=== PATIENT | female | born 1990 | race Caucasian/White ===

== ENCOUNTER 2017-04-29 10:57 | Emergency (ER) | payer MEDICAID, SELFPAY ==
[2017-04-29] MEDS ORDERED: Ondansetron HCl/PF 4 MG/2 ML Vial ONE (11:23)
[2017-04-29] MEDS ORDERED: Sodium Chloride 0.9% 1,000 ML ONE (11:23)
[2017-04-29] MEDS ORDERED: Famotidine/PF 20 mg/2ml Vial ONE (11:24)
[2017-04-29] MEDS ORDERED: Mag-Al Plus 1200 MG/1200 MG/120 MG/30 ML UDCUP ONE (11:26)
[2017-04-29] MEDS ORDERED: Lidocaine Viscous Sol 2% 15 ml UD Cup ONE (11:26)
[2017-04-29 11:49] LABS: ALT (SGPT) 20 U/L (8-55); AST (SGOT) 37 U/L (5-34); Albumin 4.2 g/dL (3.5-5.0); Alkaline Phosphatase 61 U/L (40-150); Anion Gap 16 mmol/L (10-20); BUN (Urea Nitrogen) 14 mg/dL (7.0-18.7); Bilirubin, Total 0.6 mg/dL (0.2-1.2); Calc. Creatinine Clearance 0 mL/min (70-130); Calcium 9.5 mg/dL (7.8-10.44); Carbon Dioxide 21 mmol/L (22-29); Chloride 107 mmol/L (98-107); Estimated GFR-MDRD Greater than 90; Globulin 2.5 g/dL (2.4-3.5); Glucose 97 mg/dL (70-105); Lipase 22 U/L (8-78); Potassium 3.6 mmol/L (3.5-5.1); Protein, Total 6.7 g/dL (6.0-8.3); Sodium 140 mmol/L (136-145)
[2017-04-29 11:50] LABS: #Basophils 0.1 thou/uL (0.0-0.2); #Eosinphils 1.2 thou/uL (0.0-0.7); #Lymphocytes 1.8 thou/uL (1.20-3.40); #Monocytes 0.8 thou/uL (0.11-0.59); #Neutrophils 2.8 thou/uL (1.40-6.50); %Basophils 1.8 % (0.0-1.0); %Eosinophils 17.9 % (0.0-10.0); %Monocytes 11.9 % (0.0-10.0); %Neutrophils 41.3 % (42.0-75.0); Hemoglobin 13.4 g/dL (12.0-16.0); Mean Corpuscular HGB CONC 32.2 g/dL (32.0-36.0); Mean Corpuscular Hemoglobin 26.7 pg (27.0-31.0); Mean Corpuscular Volume 82.9 fl (81.0-99.0); Mean Platelet Volume 9.5 fL (7.4-10.4); Platelet Count 153 thou/uL (130-400); RBC Distribution Width 12.4 % (11.5-14.5); Red Blood Cell (RBC) Count 5.04 mill/uL (4.20-5.40); White Blood Cell (WBC) Count 6.7 thou/uL (4.8-10.8)
[2017-04-29 12:18] LABS: Blood, Urine Negative (Negative); Clarity Clear (Clear); Glucose, Urine (Dipstick) Negative (Negative); Leukocyte Negative (Negative); Nitrite Negative (Negative); Protein, Urine (Dipstick) Negative (Neg-Trace); pH, Urine 5.5 (5.0-9.0)
[2017-04-29 12:19] LABS: Icto Negative (Negative); Pregnancy Test - Urine (BHCG) Negative (NEGATIVE); Specific Gravity, Urine 1.034 (1.002-1.036)
[2017-04-29 12:20] LABS: Pregu Control Background? CLEAR/WHITE (CLR/WHITE); Pregu Control Bar Appear? YES (CONTROL BAR); Specific Gravity 1.034 (1.002-1.036)
== END 2017-04-29 13:02 | disposition home or self-care (01) ==
LOC: NAV ERS 10:57
DX: K29.00 Acute gastritis without bleeding (principal); F41.9 Anxiety disorder, unspecified
CPT/HCPCS: 80053; 81003; 81025; 82150; 83690; 85025; 96361; 96374; 96375; J2405; J7050; S0028

== ENCOUNTER 2017-09-01 12:34 | Emergency (ER) | payer SELFPAY ==
[2017-09-01] MEDS ORDERED: Sodium Chloride 0.9% 1,000 ML ONE (12:52)
[2017-09-01] MEDS ORDERED: Ondansetron HCl/PF 4 MG/2 ML Vial ONE (12:52)
[2017-09-01 13:42] LABS: #Basophils 0.1 thou/uL (0.0-0.2); #Lymphocytes 0.6 thou/uL (1.20-3.40); #Monocytes 0.8 thou/uL (0.11-0.59); %Basophils 0.6 % (0.0-1.0); %Eosinophils 0.3 % (0.0-10.0); %Lymphocytes 5.6 % (21.0-51.0); %Monocytes 7.7 % (0.0-10.0); %Neutrophils 85.8 % (42.0-75.0); Hemoglobin 14.7 g/dL (12.0-16.0); Mean Corpuscular HGB CONC 31.3 g/dL (32.0-36.0); Mean Corpuscular Hemoglobin 27.4 pg (27.0-31.0); Mean Corpuscular Volume 87.6 fl (81.0-99.0); Mean Platelet Volume 7.8 fL (7.4-10.4); Platelet Count 235 thou/uL (130-400); RBC Distribution Width 11.6 % (11.5-14.5); Red Blood Cell (RBC) Count 5.37 mill/uL (4.20-5.40); White Blood Cell (WBC) Count 10.5 thou/uL (4.8-10.8)
[2017-09-01 13:57] LABS: ALT (SGPT) 12 U/L (8-55); AST (SGOT) 13 U/L (5-34); Albumin 4.3 g/dL (3.5-5.0); Alkaline Phosphatase 73 U/L (40-150); Anion Gap 14 mmol/L (10-20); BUN (Urea Nitrogen) 9 mg/dL (7.0-18.7); Bilirubin, Total 0.5 mg/dL (0.2-1.2); Calc. Creatinine Clearance 0 mL/min (70-130); Calcium 9.4 mg/dL (7.8-10.44); Carbon Dioxide 24 mmol/L (22-29); Chloride 103 mmol/L (98-107); Estimated GFR-MDRD Greater than 90; Globulin 2.9 g/dL (2.4-3.5); Glucose 102 mg/dL (70-105); Lipase 25 U/L (8-78); Potassium 3.9 mmol/L (3.5-5.1); Protein, Total 7.2 g/dL (6.0-8.3); Sodium 137 mmol/L (136-145)
[2017-09-01] MEDS ORDERED: Acetaminophen 500 MG TAB ONE (13:57)
[2017-09-01 14:26] LABS: Bilirubin Negative (Negative); Blood, Urine Trace (Negative); Clarity Clear (Clear); Glucose, Urine (Dipstick) Negative (Negative); Leukocyte Negative (Negative); Nitrite Negative (Negative); Protein, Urine (Dipstick) Negative (Neg-Trace); Urobilinogen 0.2 mg/dL (0.2-1.0)
[2017-09-01 15:03] LABS: Bacteria/HPF Rare-Few HPF (None Seen); RBC/HPF None Seen HPF (0-3); Squamous Epithelial 0-3 HPF (0-3); WBC/HPF 0-3 HPF (0-3)
== END 2017-09-01 15:40 | disposition home or self-care (01) ==
LOC: NAV ERS 12:34
DX: A08.4 Viral intestinal infection, unspecified (principal); F41.9 Anxiety disorder, unspecified; Z87.891 Personal history of nicotine dependence
CPT/HCPCS: 80053; 81003; 81015; 83690; 85025; 96361; 96374; J2405; J7050

== ENCOUNTER 2018-02-08 18:01 | Emergency (ER) | payer SELFPAY | END 2018-02-08 18:27 | disposition home or self-care (01) | LOC: NAV ERS 18:01 | DX: T63.481A Toxic effect of venom of other arthropod, accidental (unintentional), initial encounter (principal); F41.9 Anxiety disorder, unspecified; Z87.891 Personal history of nicotine dependence | CPT/HCPCS: 99282 ==

== ENCOUNTER 2018-05-02 09:11 | Emergency (ER) | payer MEDICAID ==
[2018-05-02] MEDS ORDERED: Ondansetron ODT 4 MG TAB ONE (09:53)
[2018-05-02] MEDS ORDERED: Ketorolac Tromethamine 30 MG/ML VIAL ONE (09:53)
== END 2018-05-02 10:16 | disposition home or self-care (01) ==
LOC: NAV ERS 09:11
DX: R51 Headache (principal); R11.2 Nausea with vomiting, unspecified; F17.210 Nicotine dependence, cigarettes, uncomplicated
CPT/HCPCS: 96372; J1885; Q0162

== ENCOUNTER 2018-08-22 16:54 | Emergency (ER) | payer MEDICAID, OTHER | END 2018-08-22 17:17 | disposition home or self-care (01) | LOC: NAV ERS 16:54 | DX: J06.9 Acute upper respiratory infection, unspecified (principal); F17.210 Nicotine dependence, cigarettes, uncomplicated; F41.9 Anxiety disorder, unspecified | CPT/HCPCS: 99283 ==

== ENCOUNTER 2019-07-11 23:08 | Emergency (ER) | payer OTHER, SELFPAY ==
[2019-07-11] MEDS ORDERED: Ondansetron ODT 4 MG TAB ONE (23:35)
[2019-07-12] MEDS ORDERED: Lorazepam 0.5 MG TAB ONE (00:05)
== END 2019-07-12 00:35 | disposition home or self-care (01) ==
LOC: NAV ERS 23:08
DX: F41.9 Anxiety disorder, unspecified (principal); Z87.891 Personal history of nicotine dependence; Z79.899 Other long term (current) drug therapy
CPT/HCPCS: 93005; Q0162

== ENCOUNTER 2019-11-17 08:46 | Emergency (ER) | payer SELFPAY ==
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
== END 2019-11-17 09:45 | disposition home or self-care (01) ==
LOC: NAV ERS 08:46
DX: S91.135A Puncture wound without foreign body of left lesser toe(s) without damage to nail, initial encounter (principal); F41.9 Anxiety disorder, unspecified; Z87.891 Personal history of nicotine dependence; W45.0XXA Nail entering through skin, initial encounter

== ENCOUNTER 2021-08-11 12:42 | Emergency (ER) | payer MEDICAID ==
[2021-08-11] MEDS ORDERED: Bicillin LA 1.2 MILLION UNITS/2 ML SYRINGE ONE (13:21)
== END 2021-08-11 13:20 | disposition home or self-care (01) ==
LOC: NAV ERS 12:42
DX: J02.0 Streptococcal pharyngitis (principal); K58.9 Irritable bowel syndrome, unspecified; Z87.891 Personal history of nicotine dependence
CPT/HCPCS: 96372; 99283; J0561

== ENCOUNTER 2021-08-13 20:08 | Emergency (ER) | payer MEDICAID | END 2021-08-13 20:30 | disposition home or self-care (01) | LOC: NAV ERS 20:08 | DX: L03.317 Cellulitis of buttock (principal); Z87.891 Personal history of nicotine dependence | CPT/HCPCS: 99283 ==

== ENCOUNTER 2021-10-10 13:13 | Emergency (ER) | payer MEDICAID, OTHER | END 2021-10-10 14:33 | disposition left against medical advice (07) | LOC: NAV ERS 13:13 | DX: Z53.21 Procedure and treatment not carried out due to patient leaving prior to being seen by health care provider (principal) ==

== ENCOUNTER 2022-02-14 22:12 | Emergency (ER) | payer OTHER ==
[2022-02-14] MEDS ORDERED: Meclizine HCl 25 MG TAB ONE (22:41)
[2022-02-14] MEDS ORDERED: Ondansetron ODT 4 MG TAB ONE ×2 (22:41→23:57)
== END 2022-02-15 00:38 | disposition home or self-care (01) ==
LOC: NAV ERS 22:12
DX: H81.10 Benign paroxysmal vertigo, unspecified ear (principal); K58.9 Irritable bowel syndrome, unspecified; Z87.891 Personal history of nicotine dependence
CPT/HCPCS: 36416; 99284; Q0162

== ENCOUNTER 2023-02-08 07:47 | Emergency (ER) | payer OTHER ==
[2023-02-08] MEDS ORDERED: Mag-Al Plus 1200 MG/1200 MG/120 MG/30 ML UDCUP ONE (08:16)
[2023-02-08] MEDS ORDERED: Lidocaine Viscous Sol 2% 15 ml UD Cup ONE (08:16)
[2023-02-08 08:31] LABS: #Basophils 0.1 thou/uL (0.0-0.2); #Eosinphils 0.2 thou/uL (0.0-0.7); #Lymphocytes 1.5 thou/uL (1.20-3.40); #Monocytes 0.6 thou/uL (0.11-0.59); #Neutrophils 3.8 thou/uL (1.40-6.50); %Basophils 1.3 % (0.0-1.0); %Eosinophils 2.5 % (0.0-10.0); %Lymphocytes 24.3 % (21.0-51.0); %Monocytes 10.1 % (0.0-10.0); %Neutrophils 61.7 % (42.0-75.0); Hemoglobin 13.7 g/dL (12.0-16.0); Mean Corpuscular HGB CONC 32.3 g/dL (32.0-36.0); Mean Corpuscular Hemoglobin 26.4 pg (27.0-31.0); Mean Corpuscular Volume 81.7 fl (78.0-98.0); Mean Platelet Volume 8.6 fL (7.4-10.4); Platelet Count 217 10x3/uL (130-400); RBC Distribution Width 12.2 % (11.5-14.5); Red Blood Cell (RBC) Count 5.17 mill/uL (4.20-5.40); White Blood Cell (WBC) Count 6.1 10x3/uL (4.8-10.8)
[2023-02-08 08:37] LABS: Bilirubin Negative (Negative); Blood, Urine Negative (Negative); Clarity Clear (Clear); Glucose, Urine (Dipstick) Negative (Negative); Ketone, Urine Negative (Negative); Leukocyte Large (Negative); Nitrite Negative (Negative); Protein, Urine (Dipstick) Negative (Neg-Trace); Urobilinogen 0.2 mg/dL (Less than 2)
[2023-02-08 08:45] LABS: ALT (SGPT) 10 U/L (8-55); AST (SGOT) 12 U/L (5-34); Albumin 4.2 g/dL (3.5-5.0); Alkaline Phosphatase 39 U/L (40-110); Anion Gap 15 mmol/L (10-20); BUN (Urea Nitrogen) 10 mg/dL (7.0-18.7); Bilirubin, Total 0.4 mg/dL (0.2-1.2); CRP (Inflammatory) Less than 0.50 mg/dL (= or < 0.5); Calc. Creatinine Clearance 0 mL/min (70-130); Calcium 9.7 mg/dL (7.8-10.44); Carbon Dioxide 24 mmol/L (22-29); Chloride 107 mmol/L (98-107); Estimated GFR 95; Globulin 2.8 g/dL (2.4-3.5); Glucose 93 mg/dL (70-105); Potassium 4.7 mmol/L (3.5-5.1); Sodium 141 mmol/L (136-145)
[2023-02-08 08:48] LABS: Bacteria/HPF Rare-Few HPF (None Seen); RBC/HPF None Seen HPF (0-3)
[2023-02-08 08:49] LABS: BHCG - Serum Negative (NEGATIVE); Pregs Control Bar Appear? YES (CONTROL BAR)
[2023-02-08] MEDS ORDERED: cefTRIAXone (ROCEPHIN) 1 GM VIAL ONE (09:22)
[2023-02-08] MEDS ORDERED: Water For Inject, Bacteriostat 30 ML ONE (09:22)
== END 2023-02-08 09:52 | disposition home or self-care (01) ==
LOC: NAV ERS 07:47
DX: K29.70 Gastritis, unspecified, without bleeding (principal); Z87.891 Personal history of nicotine dependence
CPT/HCPCS: 36415; 74176; 80053; 81003; 81015; 83605; 83690; 84703; 85025; 86140; 96372; J0696

== ENCOUNTER 2024-10-12 08:35 | Emergency (ER) | payer OTHER ==
[2024-10-12] MEDS ORDERED: Ibuprofen 200 MG TAB ONE (09:07)
== END 2024-10-12 09:49 | disposition home or self-care (01) ==
LOC: NAV ERS 08:35
DX: S52.044A Nondisplaced fracture of coronoid process of right ulna, initial encounter for closed fracture (principal); S63.501A Unspecified sprain of right wrist, initial encounter; S16.1XXA Strain of muscle, fascia and tendon at neck level, initial encounter; R03.0 Elevated blood-pressure reading, without diagnosis of hypertension; Z87.891 Personal history of nicotine dependence; W18.30XA Fall on same level, unspecified, initial encounter
CPT/HCPCS: 72125